=== PATIENT | female | born 1975 | race American Indian/Alaskan Native ===

== ENCOUNTER 2019-04-23 08:07 | Outpatient (CLI) | payer BC ==
--- NOTE | 2019-04-23 09:21 | Mammography Report ---
BILATERAL DIGITAL DIAGNOSTIC MAMMOGRAM WITH CAD 04/23/2019 RIGHT LIMITED BREAST ULTRASOUND INDICATION: Recall for bilateral asymmetries. ABNORMAL MAMMOGRAM TECHNIQUE: Digital bilateral mammographic imaging was performed. Spot compression views were obtaine d. Limited ultrasound was performed. This examination was interpreted with the benefit of Computer- ded Detection (CAD) analysis. COMPARISON: 11/17/2018 screening mammogram. FINDINGS: Breast Density: The breasts are heterogeneously dense, which may obscure small masses. MAMMOGRAPHIC FINDINGS: A right inner posterior asymmetry with irregular margins persists on a spot co mpression view. It is not identified on other views. There is no evidence of dominant mass, suspiciou s calcifications or architectural distortion in the left breast. ULTRASOUND FINDINGS: Targeted ultrasound evaluation was performed of the area of interest. Ultrasou nd of the inner right breast was performed and demonstrated a heterogeneous irregular mass at 1:00 9 cm from the nipple. Margins are somewhat irregular and is predominantly hyperechoic. It measures appr oximately 2 x 1.3 x 0.5 cm and correlates with the mammographic density. IMPRESSION: A heterogeneous predominantly hyperechoic 2 cm right breast mass at 1:00 9 cm from the ni pple. Although this may be an island of benign breast tissue, recommend ultrasound-guided needle biop sy to exclude malignancy. Negative left breast. I discussed the findings and the recommendation for ultrasound-guided needle biopsy of the right chi st with the patient at the time of the exam. Follow up recommendation: Biopsy BI-RADS Category 4: Suspicious for Malignancy. A "normal" or negative report should not discourage follow up or biopsy of a clinically significant f inding. A written summary of these findings will be mailed to the patient. The patient will be entered into a mammography reporting system which will generate a reminder letter for the patient's next appointmen t at the appropriate interval. According to the [employer], yearly mammograms are recommended starting at age 40 and continuing as long as a woman is in good health. Breast MRI is recommended for women with an elle roximately 20-25% or greater lifetime risk of breast cancer, including women with a strong family his tory of breast or ovarian cancer and women who have been treated for Hodgkin's disease. Signer Name: Rafi Shaw MD Signed: 04/23/2019 9:16 AM Workstation Name: [id number]
== END 2019-04-23 08:08 | disposition home or self-care (01) ==
LOC: SPVWC 08:07
PROVIDERS: ATTEND Obstetrics & Gynecology
DX: N63.12 Unspecified lump in the right breast, upper inner quadrant (principal)
CPT/HCPCS: 77066

== ENCOUNTER 2019-05-07 13:38 | Outpatient (CLI) | payer BC ==
--- NOTE | 2019-05-07 15:49 | Ultrasound Report ---
ULTRASOUND-GUIDED NEEDLE CORE BIOPSY RIGHT BREAST WITH CLIP PLACEMENT CLINICAL: Mass at 1:00 9 cm from the nipple. FINDINGS: The procedure was explained to the patient and informed consent was obtained. Ultrasound demonstrated the previously identified heterogeneous predominantly hyperechoic mass at the pectoral muscle.. I marked the breast with a felt tip marker and a timeout was called. The skin was prepped with Chloro -Prep and anesthetized with 1% lidocaine. Needle core biopsy was performed through small dermatotomy using ultrasound guidance, 2% lidocaine wi th epinephrine for deep anesthesia and a 14-gauge Achieve biopsy device. 4 cores were obtained and pl aced in formalin. A clip was deployed within the lesion. The patient tolerated the procedure well and there were no apparent complications. Hemostasis was ach ieved with minimal effort and a sterile dressing was applied. She left the department in good condition and was given instructions for wound care and follow-up. IMPRESSION: Uncomplicated ultrasound guided needle core biopsy with clip placement right breast. Signer Name: Rafi Shaw MD Signed: 05/07/2019 3:45 PM Workstation Name: [id number]
--- NOTE | 2019-05-07 15:58 | Mammography Report ---
DIGITAL DIAGNOSTIC MAMMOGRAM WITH CAD, 05/07/2019 INDICATION: F/U clip placement ultrasound biopsy TECHNIQUE: Digital right mammographic imaging was performed. This examination was interpreted with the benefit of Computer-aided Detection analysis. COMPARISON: 04/23/2019 and 11/17/2018 FINDINGS: Breast Density: The breasts are heterogeneously dense, which may obscure small masses. A biopsy clip is now identified far posterior at 1:00. IMPRESSION: Concordant clip deployment. Follow up recommendation: Clinical exam Post biopsy imaging. A "normal" or negative report should not discourage follow up or biopsy of a clinically significant f inding. A written summary of these findings will be mailed to the patient. The patient will be entered into a mammography reporting system which will generate a reminder letter for the patient's next appointmen t at the appropriate interval. According to the [employer], yearly mammograms are recommended starting at age 40 and continuing as long as a woman is in good health. Breast MRI is recommended for women with an elle roximately 20-25% or greater lifetime risk of breast cancer, including women with a strong family his tory of breast or ovarian cancer and women who have been treated for Hodgkin's disease. Signer Name: Rafi Shaw MD Signed: 05/07/2019 3:53 PM Workstation Name: [id number]
== END 2019-05-07 13:39 | disposition home or self-care (01) ==
LOC: SPVWC 13:38
PROVIDERS: ATTEND Obstetrics & Gynecology
DX: N63.13 Unspecified lump in the right breast, lower outer quadrant (principal)
CPT/HCPCS: 88305

== ENCOUNTER 2020-07-22 10:49 | Outpatient (CLI) | payer BC ==
--- NOTE | 2020-07-29 09:12 | Mammography Report ---
DIGITAL SCREENING MAMMOGRAM WITH CAD, 07/29/2020 CLINICAL INFORMATION / INDICATION: Routine screening mammography. TECHNIQUE: Digital bilateral 2D mammography was obtained in the craniocaudal and mediolateral obliqu e projections. This examination was interpreted with the benefit of Computer-Aided Detection analysis . COMPARISON: 04/23/2019, 11/17/2018 FINDINGS: Breast Density: The breasts are heterogeneously dense, which may obscure small masses. No dominant mass, suspicious calcifications, or architectural distortion in either breast. There has been interval biopsy of nodular density in the upper inner posterior right breast with path ology results benign. No other significant interval change. IMPRESSION: No mammographic evidence of malignancy. Follow up recommendation: Routine yearly BI-RADS Category 2: Benign. A "normal" or negative report should not discourage follow up or biopsy of a clinically significant f inding. A written summary of these findings will be mailed to the patient. The patient will be entered into a mammography reporting system which will generate a reminder letter for the patient's next appointmen t at the appropriate interval. The [employer] recommends yearly mammograms starting at age 40 and continuing as l humberto as a woman is in good health. Breast MRI is recommended for women with an approximate 20-25% or greater lifetime risk of breast cancer, including women with a strong family history of breast or ova earl cancer or who have been treated for Hodgkin's disease. Signer Name: Tawny Parson MD Signed: 07/29/2020 9:07 AM Workstation Name: [id number]
== END 2020-07-22 10:50 | disposition home or self-care (01) ==
LOC: SPVWC 10:49
PROVIDERS: ATTEND Obstetrics & Gynecology
DX: Z12.31 Encounter for screening mammogram for malignant neoplasm of breast (principal)
CPT/HCPCS: 77067

== ENCOUNTER 2021-07-24 07:21 | Outpatient (CLI) | payer BC ==
--- NOTE | 2021-07-27 18:32 | Mammography Report ---
DIGITAL SCREENING MAMMOGRAM WITH CAD, 07/24/2021 CLINICAL INFORMATION / INDICATION: Routine screening mammography. SCREENING MAMMOGRAM TECHNIQUE: Digital bilateral 2D mammography was obtained in the craniocaudal and mediolateral obliqu e projections. This examination was interpreted with the benefit of Computer-Aided Detection analysis . COMPARISON: 07/22/2020, 04/23/2019 FINDINGS: Breast Density: The breasts are heterogeneously dense, which may obscure small masses. No dominant mass, suspicious calcifications, or architectural distortion in the right breast. Biopsy clip is again noted in the posterior medial right breast with associated stable nodular densit y. There is new small asymmetry in the posterior central left breast, midline, seen only on cc view. IMPRESSION: New small asymmetry in the posterior left central breast, noted only on the CC image. Rec ommend further evaluation with spot compression imaging and possible left breast ultrasound. Follow up recommendation: Special View: Spot Compression BI-RADS Category 0: INCOMPLETE. Needs additional imaging evaluation and/or prior mammograms for lela martinez. A "normal" or negative report should not discourage follow up or biopsy of a clinically significant f inding. A written summary of these findings will be mailed to the patient. The patient will be entered into a mammography reporting system which will generate a reminder letter for the patient's next appointmen t at the appropriate interval. The [employer] recommends yearly mammograms starting at age 40 and continuing as l humberto as a woman is in good health. Breast MRI is recommended for women with an approximate 20-25% or greater lifetime risk of breast cancer, including women with a strong family history of breast or ova earl cancer or who have been treated for Hodgkin's disease. Signer Name: Tawny Parson MD Signed: 07/27/2021 6:27 PM Workstation Name: [email or web address]
== END 2021-07-24 07:22 | disposition home or self-care (01) ==
LOC: MAMMO 07:21
PROVIDERS: ATTEND Obstetrics & Gynecology
DX: Z12.31 Encounter for screening mammogram for malignant neoplasm of breast (principal)
CPT/HCPCS: 77067

== ENCOUNTER 2021-09-04 11:06 | Outpatient (CLI) | payer BC ==
--- NOTE | 2021-09-04 12:04 | Mammography Report ---
DIGITAL DIAGNOSTIC MAMMOGRAM WITH CAD , 09/04/2021 CLINICAL INFORMATION / INDICATION: ABNORMAL MAMMOGRAM TECHNIQUE: Digital left mammographic imaging was performed. Spot compression views were obtained. This examination was interpreted with the benefit of Computer-aided Detection analysis. COMPARISON: 07/24/2021, 07/22/2020 FINDINGS: Breast Density: The breasts are heterogeneously dense, which may obscure small masses. The small asymmetry in the left central breast noted on the recent screening mammogram resolves with spot compression views. IMPRESSION: No mammographic evidence of malignancy. Follow up recommendation: Back to schedule. BI-RADS Category 2: BENIGN. A "normal" or negative report should not discourage follow up or biopsy of a clinically significant f inding. A written summary of these findings will be mailed to the patient. The patient will be entered into a mammography reporting system which will generate a reminder letter for the patient's next appointmen t at the appropriate interval. According to the [employer], yearly mammograms are recommended starting at age 40 and continuing as long as a woman is in good health. Breast MRI is recommended for women with an elle roximately 20-25% or greater lifetime risk of breast cancer, including women with a strong family his tory of breast or ovarian cancer and women who have been treated for Hodgkin's disease. Signer Name: Regino Johnson MD Signed: 09/04/2021 11:59 AM Workstation Name: [email or web address]
== END 2021-09-04 11:07 | disposition home or self-care (01) ==
LOC: MAMMO 11:06
PROVIDERS: ATTEND Obstetrics & Gynecology
DX: R92.8 Other abnormal and inconclusive findings on diagnostic imaging of breast (principal)